=== PATIENT | male | born 1970 | race Two or more races ===

== ENCOUNTER 2021-05-18 16:57 | Emergency (ER) | payer OTHER ==
[~2021-05-18] VITALS: Ht 170.2 cm; Wt 65.8 kg
== END 2021-05-18 20:41 | disposition home or self-care (01) ==
LOC: ER 16:57
DX: T63.441A Toxic effect of venom of bees, accidental (unintentional), initial encounter (principal); Y92.89 Other specified places as the place of occurrence of the external cause